=== PATIENT | male | born 1980 | race Caucasian/White ===

== ENCOUNTER 2020-01-31 08:03 | Emergency (ER) | payer BC, OTHER ==
[~2020-01-31] VITALS: Ht 165.1 cm; Wt 80.9 kg
[2020-01-31 08:05] VITALS: BP 132/86
[2020-01-31] MEDS ORDERED: LEXA1TAB PO (08:09)
--- NOTE | 2020-01-31 08:57 | REPVR ---
PROCEDURE INFORMATION: Exam: XR Left Shoulder Exam date and time: 01/31/2020 8:38 AM Age: 39 years old Clinical indication: Patient HX: Atraumatic pain lt shoulder TECHNIQUE: Imaging protocol: XR Left shoulder. Views: 2 or more views. COMPARISON: No relevant prior studies available. FINDINGS: Bones/joints: Normal. No acute fracture. Soft tissues: Normal. IMPRESSION: No acute findings. Electronically signed by: Rivka Mendiola On 01/31/2020 08:57:42 AM
[2020-01-31] MEDS ORDERED: NAPR-837 PO (09:05)
== END 2020-01-31 09:11 | disposition home or self-care (01) ==
LOC: M ED 08:03
DX: M25.512 Pain in left shoulder (principal); Z91.040 Latex allergy status; Z79.899 Other long term (current) drug therapy